=== PATIENT | female | born 1985 | race Hispanic/Latino ===

== ENCOUNTER 2021-05-21 21:31 | Emergency (ER) | payer OTHER ==
[~2021-05-21] VITALS: Ht 160 cm; Wt 70.3 kg
[2021-05-21] MEDS ORDERED: HYDROCODON-ACE1 EAC9 PO (23:14)
== END 2021-05-22 00:10 | disposition home or self-care (01) ==
LOC: ER 21:59
DX: M25.571 Pain in right ankle and joints of right foot (principal); S82.831A Other fracture of upper and lower end of right fibula, initial encounter for closed fracture; X50.1XXA Overexertion from prolonged static or awkward postures, initial encounter; Y93.01 Activity, walking, marching and hiking
CPT/HCPCS: 99283